=== PATIENT | male | born 1955 | race Caucasian/White ===

== ENCOUNTER 2020-11-01 09:29 | Day surgery (SDC) | payer MEDICARE ==
[2020-10-29 11:20] VITALS: BMI 28.7
[~2020-11-01 09:29] MED LIST: ALPRAZolam 0.25 MG TAB PO PRN; ALPRAZolam 0.5 MG TAB PO PRN; ASPIRIN 325 MG TAB PO ONE; ATORVASTATIN 80 MG TAB PO ONE; HEPARIN SODIUM,PORCINE 10,000 UNIT in SODIUM CHLORIDE 0.9% 1,000 ML IRRIGATION PRN; HEPARIN SODIUM,PORCINE 2,500 UNIT in SODIUM CHLORIDE 0.9% 250 ML IRRIGATION PRN; NITROGLYCERIN SL TABS 0.4 MG TAB SUBLINGUAL PRN; SODIUM CHLORIDE 0.9% 1,000 ML in EMPTY BAG 1 BAG IV ONE
[2020-11-01 09:58] VITALS: TEMP 97.9
[2020-11-01] MEDS: MIDAZOLAM 2 MG/2 ML VIAL IV ONE ×2 (11:07→11:13)
[2020-11-01] MEDS ORDERED: fentaNYL (PF) 50 MCG/ML 2 ML AMP IV ONE (11:07)
[2020-11-01] MEDS ORDERED: LIDOCAINE 1% INJ 10MG/ML (20 ML MDV) SQ ONE (11:11)
[2020-11-01] MEDS ORDERED: IOPAMIDOL-370 125ML BTL INJ ONE (11:23)
[2020-11-01] MEDS ORDERED: RX INFO: IV CONTRAST WAS GIVEN 1 EACH MISC MISCELLANE PRN (12:03)
[2020-11-01] MEDS ORDERED: SODIUM CHLORIDE 0.9% 1,000 ML IV SCH (12:15)
--- NOTE | 2020-11-01 12:17 | CC ---
CARDIAC CATHETERIZATION REPORT INDICATION: Intermittent episodes of dizziness and diaphoresis in a patient with abnormal stress test. PROCEDURE NOTE: After obtaining informed consent, left heart catheterization and coronary angiogram are performed via the right femoral artery using standard Gris catheters. The patient tolerated the procedure well without any obvious immediate complications. A femoral angiogram was performed and Angio-Seal will be deployed for hemostasis. Patient received moderate conscious sedation. Total sedation time was 19 minutes. FINDINGS: 1. HEMODYNAMICS: Left ventricular end-diastolic pressure is 14-16 mm. There is no significant gradient across the aortic valve. 2. LEFT VENTRICULOGRAM: Left ventriculogram is not performed. 3. ANGIOGRAPHIC DATA: Left Main Coronary Artery: Left main coronary artery is a normal-sized vessel and is free of stenosis. Divides into left anterior descending coronary artery and circumflex coronary artery. LAD and its branches, circumflex coronary artery and its branches are free of significant stenosis. Right coronary artery is a large dominant vessel and is free of significant disease. CONCLUSIONS: 1. Normal coronary arteries. 2. Normal left ventricular end-diastolic pressure. PLAN: Patient symptoms are noncardiac in origin. The stress test is a false positive stress test. Thank you for giving me the privilege to participate in the care of this pleasant gentleman. MMODL / IJN: [id number] /
[2020-11-01 17:30] VITALS: BP 147/80; PULSE 64; RESP 13
== END 2020-11-01 16:55 | disposition home or self-care (01) ==
LOC: CATHCVL 09:29
PROVIDERS: ATTEND Internal Medicine Cardiovascular Disease
DX: R42 Dizziness and giddiness (principal); R94.39 Abnormal result of other cardiovascular function study; I10 Essential (primary) hypertension; Z82.49 Family history of ischemic heart disease and other diseases of the circulatory system; Z79.899 Other long term (current) drug therapy
CPT/HCPCS: 93458; C1769 ×2; C1760; C1894; J2250; J2001; J3010; Q9967

== ENCOUNTER → 2020-11-29 | Outpatient (CLI) | payer MEDICARE ==
--- NOTE | 2020-11-29 11:27 | XR ---
EXAMINATION TYPE: XR chest 2V DATE OF EXAM: 11/29/2020 COMPARISON: NONE HISTORY: Shortness of breath TECHNIQUE: Frontal and lateral views of the chest are obtained. FINDINGS: Scattered senescent parenchymal changes noted. Hyperinflation compatible with COPD. No evidence for infiltrate. No evidence for atelectasis. Heart size is stable. Mediastinal structures are stable and grossly unremarkable. No evidence for hilar prominence. Degenerative changes dorsal spine. IMPRESSION: 1. No evidence for acute pulmonary disease.
== END | disposition home or self-care (01) ==
LOC: RADXRMAIN 10:54
PROVIDERS: ATTEND Family Medicine
DX: R06.02 Shortness of breath (principal)
CPT/HCPCS: 71046

== ENCOUNTER → 2021-06-14 | Outpatient (CLI) | payer MEDICARE ==
[2021-06-14 08:42] LABS: African American GFR (CKD) >90 (>60 ml/min/1.73 sqM); Blood Urea Nitrogen 20 mg/dL (9-20); Non-African American GFR(CKD) 83 (>60 ml/min/1.73 sqM)
--- NOTE | 2021-06-14 10:16 | CT ---
EXAMINATION TYPE: CT pelvis w con DATE OF EXAM: 06/14/2021 COMPARISON: None HISTORY: 66-year-old male C6 1, new prostate cancer TECHNIQUE: Contiguous axial scanning of the pelvis following administration of 100 ml Isovue 300 IV c ontrast. Delayed images through the bladder and coronal/sagittal reconstructions performed. CT DLP: 851.6 mGycm Automated exposure control for dose reduction was used. FINDINGS: Moderate circumferential bladder wall thickening. The prostate gland is enlarged at 5.4 x 5.3 cm with heterogeneous enhancement. No retroperitoneal or pelvic lymphadenopathy seen. A number of cysts within the liver measuring up to 1.7 cm partially visualized. Portal venous system is patent. Gallbladder, visualized portion of the adrenal glands, spleen, and pancreas show no gross abnormality . Renal cysts measuring up to 2.3 cm on the right and 8 mm on the left. No dilated small bowel, free fluid, or free air. Oral contrast progressed into the descending colon. Moderate stool burden. Sigmoid diverticulosis. Re dundant sigmoid colon. No pericolic inflammatory change. Bones: Mild degenerative change at the hips. Degenerative bony ankylosis of the SI joints. Bilateral L5 pars defects with grade 1 anterolisthesis L5-S1. Moderate degenerative disc disease here . Degenerative grade 1 retrolisthesis L4-L5. Small superior endplate Schmorl's node L4-L5. No osseous destructive process. Punctate densities right proximal femur and anterior left femoral hea d neck junction likely tiny bone islands. IMPRESSION: 1. PROSTATOMEGALY AT 5.4 CM WITH HETEROGENEOUS ENHANCEMENT LIKELY REFLECTING PATIENT'S UNDERLYING PRO STATE CANCER. 2. NO PELVIC OR RETROPERITONEAL LYMPHADENOPATHY TO SUGGEST METASTATIC DISEASE. 3. CIRCUMFERENTIAL BLADDER WALL THICKENING COULD REFLECT CHRONIC BLADDER WALL HYPERTROPHY OR CYSTITIS . 4. SIGMOID DIVERTICULOSIS. 5. BILATERAL L5 PARS DEFECTS WITH GRADE 1 ANTEROLISTHESIS AT L5-S1. DEGENERATIVE GRADE 1 RETROLISTHES IS L4-L5.
--- NOTE | 2021-06-14 12:13 | NM ---
EXAMINATION TYPE: NM bone scan whole body DATE OF EXAM: 06/14/2021 COMPARISON: NONE HISTORY: Prostate cancer. Delayed whole-body scanning was performed following the injection of 22.4 mCi Tc 99m MDP. Images acq uired 3 hours post injection. Whole body images in anterior and posterior projection along with addit ional spot views of the thorax abdomen and bilateral knees. FINDINGS: No suspicious increased radiotracer uptake to suggest metastatic disease to the bone. Increased uptake bilateral knee joints likely reflect product of degenerative change worse on the lef t side versus right side. Similar finding noted in the bilateral first toes likely reflecting bunion- type deformity and associated degenerative changes. Correlate clinically. IMPRESSION:
== END | disposition home or self-care (01) ==
LOC: RADNMMAIN 07:40
PROVIDERS: ATTEND Urology
DX: C61 Malignant neoplasm of prostate (principal); K57.30 Diverticulosis of large intestine without perforation or abscess without bleeding; M51.37 Other intervertebral disc degeneration, lumbosacral region
CPT/HCPCS: 82565; 84520; 72193; 36415; 78306; A9503; Q9967

== ENCOUNTER → 2022-07-07 | Outpatient (CLI) | payer MEDICARE ==
[2022-07-07 14:29] LABS: Basophils # (A) 0.04 X 10*3/uL (0.00-0.10); Basophils % (A) 0.7 %; Eosinophils # (A) 0.26 X 10*3/uL (0.04-0.35); Eosinophils % (A) 4.5 %; HCT 47.3 % (39.6-50.0); HGB 15.2 g/dL (13.0-17.0); Immature Grans, Automated 0.2 %; Lymphocytes # (A) 1.55 X 10*3/uL (0.90-5.00); Lymphocytes % (A) 26.6 %; MCH 30.3 pg (27.0-32.0); MCHC 32.1 g/dL (32.0-37.0); MCV 94.4 fL (80.0-97.0); Mean Platelet Volume 8.7 fL (9.5-12.2); Monocytes # (A) 0.77 X 10*3/uL (0.20-1.00); Monocytes % (A) 13.2 %; NRBC Per 100 WBC 0 /100 WBCS (0.0-0.0); Neutrophils % (A) 54.8 %; Platelet Count 149 X 10*3/uL (140-440); RBC 5.01 X 10*6/uL (4.40-5.60); RDW 13.2 % (11.5-14.5); WBC 5.83 X 10*3/uL (4.50-10.00)
[2022-07-07 14:40] LABS: African American GFR (CKD) 89.9 (60.0-200.0); Anion Gap 8.8 mmol/L (10.00-18.00); BUN/Creat Ratio 17.1 Ratio (12.00-20.00); Blood Urea Nitrogen 17.1 mg/dL (9.0-27.0); Calcium 9.2 mg/dL (8.7-10.3); Carbon Dioxide 26.2 mmol/L (20.0-27.5); Non-African American GFR(CKD) 77.5 (60.0-200.0); Potassium 4.4 mmol/L (3.5-5.5)
== END | disposition home or self-care (01) ==
LOC: LABPAT 09:31
PROVIDERS: ATTEND Urology
DX: Z01.818 Encounter for other preprocedural examination (principal); C61 Malignant neoplasm of prostate; I44.7 Left bundle-branch block, unspecified; I44.4 Left anterior fascicular block; R94.31 Abnormal electrocardiogram [ECG] [EKG]; R53.83 Other fatigue
CPT/HCPCS: 36415; 80048; 85025; 93005

== ENCOUNTER 2022-07-17 07:11 | Day surgery (SDC) | payer MEDICARE ==
[2022-07-09 14:25] VITALS: BMI 28.7
--- NOTE | 2022-07-16 19:11 | P.GSHP ---
History of Present Illness H&P Date: 07/16/22 Chief Complaint: Prostate cancer The patient is a 67-year-old white male initially evaluated in July 2020 for an elevated PSA level of 30.4. His father had prostate cancer. BUDDY revealed the prostate to be mildly enlarged with slight left-sided irregularity. He underwent a prostate ultrasound with biopsies, revealing a prostate volume of 55 mL. Only 1 of 12 biopsies was positive, a small focus of Alejandra 6 adenocarcinoma at the right apex. He subsequently underwent a CT scan, bone scan, and MRI of the prostate, and PSMA PET/CT scan, all unremarkable. His PSA level steven to 46.7 in January 2022. In April 2022, he underwent a repeat prostate ultrasound with biopsies. The prostate volume was 60 mL. Biopsies showed small foci of [place] 6 adenocarcinoma at the right lateral base and left lateral mid gland. Another focus of Alejandra 6 adenocarcinoma was found within the right transitional zone, and a focus of Alejandra 7 (3+4) adenocarcinoma measuring 5 mm in length was identified within the left transitional zone. He is aware of the concern of metastatic disease given how high his PSA level is, but studies have shown no evidence of metastases. Alternative treatment options were reviewed, primarily radiation therapy with ADT versus robotic-assisted lap aroscopic prostatectomy (RALP). He has elected to undergo an RALP. - Constitutional Constitutional: Reports chills, Reports fever - Genitourinary (Male) Genitourinary: Denies dysuria, Denies hematuria Past Medical History Past Medical History: GERD/Reflux, Hypertension Additional Past Medical History / Comment(s): dx prostate CA-2020-no radiation or chemo,irregular heartbeat History of Any Multi-Drug Resistant Organisms: None Reported Past Surgical History: Heart Catheterization, Orthopedic Surgery Additional Past Surgical History / Comment(s): prostate bx,yesica torn meniscus repairs Past Anesthesia/Blood Transfusion Reactions: Motion Sickness, Postoperative Nausea & Vomiting (PONV) Additional Past Anesthesia/Blood Transfusion Reaction / Comment(s): no hx blood transfusion, unk family hx Smoking Status: Never smoker - Past Family History Mother Family Medical History: Cancer Additional Family Medical History / Comment(s): breast Medications and Allergies Home Medications Medication Instructions Recorded Confirmed Type Dandelion Root 525 mg PO DAILY 07/09/22 07/09/22 History Allergies Allergy/AdvReac Type Severity Reaction Status Date / Time No Known Allergies Allergy Verified 07/09/22 14:17 Surgical - Exam - General well developed, well nourished, no distress - Neck no masses, trachea midline - Respiratory normal respiratory effort - Abdomen Abdomen: soft, non tender, no guarding, no rigid, no rebound - Genitourinary normal penis with no external lesions, testicles non-tender - Rectum Rectum: normal sphincter tone, no masses, other (Prostate moderately enlarged and smooth) - Psychiatric oriented to time, oriented to person, oriented to place, speech is normal, memory intact Assessment and Plan (1) Malignant neoplasm of prostate Status: Acute Code(s): C61 - MALIGNANT NEOPLASM OF PROSTATE SNOMED Code(s): 372048233 Plan: Robotic-assisted laparoscopic prostatectomy (RALP) with bilateral pelvic lymphadenectomy. The procedure has been reviewed in detail with the patient. He has been made aware of potential risks, which include anesthesia, bleeding, infection, bowel injury, neurovascular injury, lymphocele, urinary leak, and vesical neck contracture. Given that his cancer is primarily located within the transitional zones, the neurovascular bundles will be preserved. Despite this, he is aware of the risk of erectile dysfunction. He is also aware that he will likely experience post-prostatectomy urinary incontinence which may fail to resolve. Lastly, he is aware of the possible need for adjuvant therapy.
[~2022-07-17 07:11] MED LIST changes: -ALPRAZolam 0.25 MG TAB PO PRN; -ALPRAZolam 0.5 MG TAB PO PRN; -ASPIRIN 325 MG TAB PO ONE; -ATORVASTATIN 80 MG TAB PO ONE; +DEXAMETHASONE SOD PHOSPHATE 4 MG/ML 1 ML VIAL IV ONE; -HEPARIN SODIUM,PORCINE 10,000 UNIT in SODIUM CHLORIDE 0.9% 1,000 ML IRRIGATION PRN; -HEPARIN SODIUM,PORCINE 2,500 UNIT in SODIUM CHLORIDE 0.9% 250 ML IRRIGATION PRN; +HEPARIN SODIUM,PORCINE/PF 5,000 UNIT/0.5 ML SYRINGE SQ PRN; +HYDROmorphone 0.5 MG/0.5 ML SYRINGE IVP PRN; -NITROGLYCERIN SL TABS 0.4 MG TAB SUBLINGUAL PRN; -SODIUM CHLORIDE 0.9% 1,000 ML in EMPTY BAG 1 BAG IV ONE
[2022-07-17] MEDS ORDERED: ONDANSETRON 4 MG/2 ML VIAL ONE ×2 (07:42→09:54)
[2022-07-17] MEDS: LIDOCAINE 1% (10MG/ML) FOR IV START INTRADERMA PRN ×2 (07:55→08:00)
[2022-07-17] MEDS: LACTATED RINGERS 1,000 ML IV SCH ×2 (07:55→08:00)
[2022-07-17] MEDS ORDERED: MIDAZOLAM 2 MG/2 ML VIAL IV ONE (08:21)
[2022-07-17] MEDS ORDERED: HYDROmorphone (PF) 1 MG/ML ONE (09:54)
[2022-07-17] MEDS ORDERED: MIDAZOLAM 2 MG/2 ML VIAL ONE (09:54)
[2022-07-17] MEDS ORDERED: PHENYLEPHRINE-0.9% NACL SYG 1,000 MCG/10 ML SYRINGE ONE (09:54)
[2022-07-17] MEDS ORDERED: GLYCOPYRROLATE 0.2 MG/ML 2 ML VIAL ONE (09:54)
[2022-07-17] MEDS ORDERED: ROPIVACAINE 5 MG/ML 30 ML VIAL ONE (09:54)
[2022-07-17] MEDS ORDERED: PROPOFOL 10 MG/ML 20 ML VIAL IV ONE (09:54)
[2022-07-17] MEDS ORDERED: ROCURONIUM 10 MG/ML (5 ML VIAL) IV ONE (09:54)
[2022-07-17] MEDS ORDERED: NEOSTIGMINE 1 MG/ML 10 ML VIAL ONE (09:54)
[2022-07-17] MEDS ORDERED: SODIUM CHLORIDE 0.9% (PF) 10 ML VIAL ONE (09:54)
[2022-07-17] MEDS ORDERED: fentaNYL (PF) 50 MCG/ML 2 ML AMP ONE (09:54)
[2022-07-17] MEDS ORDERED: SUCCINYLCHOLINE CHLORIDE 200 MG/10 ML VIAL IV ONE (09:54)
[2022-07-17] MEDS ORDERED: LIDOCAINE 2% INJ 20 MG/ML (2 ML VIAL) ONE (09:54)
--- NOTE | 2022-07-17 10:22 | P.ANPRN ---
Procedure Note - Anesthesia - Nerve Block Performed Bilateral Erector Spinae Time Out Performed: Yes (:) Date of Procedure: 07/17/22 Procedure Start Time: Procedure Stop Time: Location of Patient: PreOp Indication: Acute Post-Operative Pain, Requested by Surgeon (Dr Dang) Sedation Type: Sedate with meaningful contact maintained Preparation: Sterile Prep Position: Prone Catheter: None Needle Types: Pajunk Needle Gauge: 21 Ultrasound used to visualize needle placement: Yes Ultrasound used to observe medication spread: Yes Injectate: 0.5% Ropivacaine (see comment for volume) (15cc +10cc PF Normal saline each side) Blood Aspirated: No Pain Paresthesia on Injection Noted: No Resistance on Injection: Normal Image Stored and Saved: Yes Events: Uneventful and Well Tolerated
[2022-07-17] MEDS ORDERED: BUPIVACAINE (PF) 0.25% 30 ML VIAL SQ ONE ×3 (10:28)
[2022-07-17] MEDS ORDERED: LACTATED RINGERS 1,000 ML IV ONE ×2 (13:29)
[2022-07-17] MEDS ORDERED: HYDROmorphone 1 MG/ML 1 ML SYRINGE IVP PRN (14:12)
[2022-07-17] MEDS ORDERED: ONDANSETRON 4 MG/2 ML VIAL IVP PRN (14:12)
--- NOTE | 2022-07-17 14:12 | P.OP ---
Date of Procedure: 07/17/22 Preoperative Diagnosis: Adenocarcinoma of the prostate Postoperative Diagnosis: Same Procedure(s) Performed: Robotic-assisted laparoscopic prostatectomy (RALP) with bilateral pelvic lymphadenectomy Anesthesia: STEF Surgeon: Elijah Dang Extension Associate #1: Sukhi Ren Estimated Blood Loss (ml): 75 IV fluids (ml): 1,800 Pathology: other (Prostate, seminal vesicles, bilateral pelvic lymph nodes) Condition: stable Disposition: PACU Indications for Procedure: The patient is a 67-year-old white male initially evaluated in July 2020 for an elevated PSA level of 30.4. His father had prostate cancer. BUDDY revealed the prostate to be mildly enlarged with slight left-sided irregularity. He underwent a prostate ultrasound with biopsies, revealing a prostate volume of 55 mL. Only 1 of 12 biopsies was positive, a small focus of Alejandra 6 adenocarcinoma at the right apex. He subsequently underwent a CT scan, bone scan, and MRI of the prostate, and PSMA PET/CT scan, all unremarkable. His PSA level steven to 46.7 in January 2022. In April 2022, he underwent a repeat prostate ultrasound with biopsies. The prostate volume was 60 mL. Biopsies showed small foci of [place] 6 adenocarcinoma at the right lateral base and left lateral mid gland. Another focus of Alejandra 6 adenocarcinoma was found within the right transitional zone, and a focus of Heath 7 (3+4) adenocarcinoma measuring 5 mm in length was identified within the left transitional zone. He is aware of the concern of metastatic disease given how high his PSA level is, but studies have shown no evidence of metastases. Alternative treatment options were reviewed, primarily radiation therapy with ADT versus robotic-assisted laparoscopic prostatectomy (RALP). He has elected to undergo an RALP. Operative Findings: No evidence of extraprostatic disease. Description of Procedure: The patient was taken in the operating room and placed in the supine position. He was carefully positioned on a beanbag for stability. The abdomen and external genitalia were prepped and draped sterilely. A Arciniega catheter was inserted. The Veress needle was passed through the anterior abdominal wall immediately cephalad to the umbilicus, and insufflation was performed to a pressure of 20 mm Hg. Once insufflation was performed, the Veress needle was removed and a supraumbilical incision was made, through which an 8 mm camera port was placed. Under camera guidance, 3 8 mm robotic ports were placed, 2 on the left and one on the right. A 12 mm port was placed on the right lateral side for use as an funeral home assistant port. A 5 mm port was placed to the right of the camera port for suction. The patient was placed in Trendelenburg position, and docking was then performed to the da Jazmin system utilizing a 4-arm approach. The abdomen was examined. The sigmoid colon was mobilized out of the pelvis. The peritoneum was incised lateral to the medial umbilical ligaments bilaterally, exposing the pubis. The peritoneum was then incised across the midline, allowing the bladder flap to be taken down. The endopelvic fascia was opened bilaterally, and muscular attachments from the urogenital diaphragm were swept away from the prostate. Bilateral pelvic lymphadenectomies were performed in the standard fashion, utilizing an extended template given the degree of PSA elevation. The peritoneal incisions were extended in a cephalad direction, and the vas deferens were divided bilaterally. Margins of dissection were the bifurcation of the iliac vessels proximally, the circumflex iliac vein distally, the genitofemoral nerve laterally, and the obturator nerve medially. A combination of sharp and blunt dissection was used. Care was taken to avoid any neurovascular injury, and the use of monopolar electrocautery was avoided immediately adjacent to neurovascular structures. The lymphatic package was clipped distally. No enlarged lymph nodes were encountered. There were no complications. The vesical neck was incised transversely, down to the lumen. The Arciniega catheter was brought out through the anterior vesical neck incision and was used for traction. The posterior aspect of the vesical neck was incised, such that the full-thickness of the vesical neck was divided. The anterior layer of the Denonvilliers fascia was incised, exposing the vas deferens. Each were isolated and divided. Next, each of the seminal vesicles were dissected away from adjacent tissues, and vascular attachments were cauterized and divided. The posterior leaf of Denonvilliers fascia was incised transversely, allowing entry into the plane between the prostate and rectum. With lateral spreading, this plane was developed down to the apex. This exposed the lateral vascular pedicles bilaterally. These were clipped and divided in an antegrade fashion, down to the apex. The use of electrocautery was avoided to prevent thermal damage to the nerves. The neurovascular bundles were preserved bilaterally. The remaining apical attachments were swept away from the prostate. The dorsal venous complex was incised, as well as periurethral tissue. At this point, only the urethra remained intact. This was transected immediately distal to the prostatic apex using cold scissors. The specimen was placed within a specimen bag. The dorsal venous complex was sutured using a V-Loc suture in a running fashion. The suture was passed through the periosteum of the pubis periurethral support. A second V-Loc suture was then used to place the Trent stitch, incorporating the rhabdosphincter and the edge of Denonvilliers fascia. This allowed the bladder to be taken down to the urethra, leaving the vesical neck immediately adjacent to the urethra. The vesicourethral anastomosis was then performed using a V-Loc suture in a running fashion. After completing the anastomosis, an 18-Armenian Arciniega catheter was placed and approximately 150 mL of 0.9 normal saline were instilled into the bladder. No extravasation of irrigant from the vesicourethral anastomosis was noted. A small amount of oozing was noted from the right vascular pedicle, so Surgicel was placed over the vascular pedicles bilaterally. Tisseel was sprayed into the pelvis over the vascular pedicles, dorsal vein, and vesicourethral anastomosis. The patient was returned to the supine position. Undocking was performed, and the specimen bag sutures were passed through the camera port. After removing all the ports and allowing all of the CO2 to be released from the peritoneal cavity, the camera port incision was enlarged to allow removal of the surgical specimen. The fascia of this incision was then closed using 0 PDS suture in a running fashion. Each of the skin incisions were then closed using 4-0 Monocryl suture in a subcuticular fashion. Marcaine was injected at each of the incision sites. Dermabond was applied to each incision. The Arciniega catheter was connected to gravity drainage. All sponge and needle counts were correct. The patient tolerated the procedure well was taken to the recovery room in stable condition.
[2022-07-17] MEDS: DEXTROSE 5%-0.45% NACL 1,000 ML IV SCH (16:03)
[2022-07-17] MEDS: KETOROLAC 15 MG/ML 1 ML VIAL IVP PRN (16:11)
[2022-07-17] MEDS: HEPARIN SODIUM,PORCINE/PF 5,000 UNIT/0.5 ML SYRINGE SQ SCH (22:44)
[2022-07-17] MEDS: lisinopriL 20 MG TAB PO SCH (22:44)
[2022-07-18] MEDS: DEXTROSE 5%-0.45% NACL 1,000 ML IV SCH ×3 (01:20→16:34)
[2022-07-18] MEDS: KETOROLAC 15 MG/ML 1 ML VIAL IVP PRN ×4 (01:20→23:06)
[2022-07-18] MEDS: HEPARIN SODIUM,PORCINE/PF 5,000 UNIT/0.5 ML SYRINGE SQ SCH ×2 (10:38→21:46)
[2022-07-18] MEDS ORDERED: HYDROcodone/APAP 5-325MG 1 EACH TAB PO PRN (13:34)
--- NOTE | 2022-07-18 13:39 | P.PN ---
Progress Note - Text POD #1 S/P RALPNo acute overnight event, having incisional pain. Denies any N/V. urine is light pink. Exam Abdomen: mild distention, soft, tenderness along incision Incision: CDI A/P S/P RALP -pain control -ambulate -potential discharge home today vs tomorrow
[2022-07-18] MEDS: lisinopriL 20 MG TAB PO SCH (21:46)
[2022-07-18] MEDS: ACETAMINOPHEN TAB 325 MG TAB PO PRN (21:54)
[2022-07-19] MEDS: DEXTROSE 5%-0.45% NACL 1,000 ML IV SCH ×2 (02:28→10:02)
[2022-07-19] MEDS: LACTATED RINGERS 1,000 ML IV SCH (05:39)
[2022-07-19] MEDS: ACETAMINOPHEN TAB 325 MG TAB PO PRN ×2 (05:44→10:00)
[2022-07-19 07:58] VITALS: BP 160/96; PULSE 82; RESP 18; TEMP 98
[2022-07-19] MEDS: HEPARIN SODIUM,PORCINE/PF 5,000 UNIT/0.5 ML SYRINGE SQ SCH (10:00)
--- NOTE | 2022-07-19 12:07 | P.DS ---
Providers Attending physician: Elijah Dang Primary care physician: [facility] [place] [facility] Course: This is 67-year-old male with history of prostate cancer. Underwent a robotic prostatectomy by Dr. Dang on July 17. Patient was admitted to the hospital postoperatively. Please see op note dated July 17 for surgery detail. He was having some incisional pain on postop day #1. The pain improved on postop day #2 and he was discharged home with the Arciniega catheter. At time of discharge he was tolerating a diet, ambulating and pain was controlled Plan - Discharge Summary Discharge Rx Participant: No New Discharge Prescriptions: No Action Enalapril [Vasotec] 10 mg PO HS Ubidecarenone [Co Q-10] 300 mg PO DAILY Dandelion Root 525 mg PO DAILY Discharge Medication List Dandelion Root 525 mg PO DAILY 07/09/22 [History] Enalapril [Vasotec] 10 mg PO HS 07/17/22 [History] Ubidecarenone [Co Q-10] 300 mg PO DAILY 07/17/22 [History] Follow up Appointment(s)/Referral(s): Elijah Dang MD [STAFF PHYSICIAN] - 07/28/22
[2022-07-19] MEDS: KETOROLAC 15 MG/ML 1 ML VIAL IVP PRN (13:37)
== END 2022-07-19 15:02 | disposition home or self-care (01) ==
LOC: OR 07:11 → 4SSUR 14:01 → OR 07-19 15:02
PROVIDERS: ATTEND Urology
DX: C61 Malignant neoplasm of prostate (principal); Z80.42 Family history of malignant neoplasm of prostate; I10 Essential (primary) hypertension; K21.9 Gastro-esophageal reflux disease without esophagitis; Z98.890 Other specified postprocedural states; Z80.3 Family history of malignant neoplasm of breast; Z79.811 Long term (current) use of aromatase inhibitors; Z86.79 Personal history of other diseases of the circulatory system
CPT/HCPCS: 55866; 38571; 64999; 76942; 94760; 64461; 86900; 86901; 88305; 86850; 88307; 88309; J2250; J0330; J1100; J2710; J0690 ×2; J2405; J3010; J1170; J2795; J1885 ×3; J2370; J2704; J1644 ×3; J2001

== ENCOUNTER 2022-07-20 19:12 | Emergency (ER) | payer MEDICARE ==
[2022-07-20 19:19] VITALS: BP 165/86; PULSE 101; RESP 18; TEMP 97.7
--- NOTE | 2022-07-20 20:28 | US ---
EXAMINATION TYPE: US scrotum with doppler. Grayscale and color Doppler Duplex imaging performed of t he scrotum. DATE OF EXAM: 07/20/2022 COMPARISON: NONE CLINICAL HISTORY: swelling s/p prostatectomy. EXAM MEASUREMENTS: TESTICLES: Right Testicle: 4.8 x 3.4 x 2.7 cm Left Testicle: 4.6 x 3.5 x 3.3 cm EPIDIDYMIS HEAD: Right Epididymis: 0.87 cm Hypoechoic, possibly cystic well circumscribed mass in head of epididymis . 0.6 x 0.6 x 0.5cm Left Epididymis: 0.57 cm Doppler performed to assess for testicular vascularity; good bilateral color flow and waveforms are s een. There is no evidence of testicular torsion. Presence of hydroceles: No Presence of varicoceles: No * Significant tissue edema bilateral scrotal wall. IMPRESSION: There is bilateral scrotal edema. No testicular torsion or mass. Right-sided epididymal cyst.
[2022-07-20 20:33] LABS: Basophils % (A) 0 %; Eosinophils # (A) 0.2 k/uL (0-0.7); Eosinophils % (A) 2 %; HCT 45.7 % (39.0-53.0); HGB 15.5 gm/dL (13.0-17.5); Lymphocytes # (A) 1.1 k/uL (1.0-4.8); Lymphocytes % (A) 15 %; MCH 31.1 pg (25.0-35.0); MCHC 33.9 g/dL (31.0-37.0); MCV 91.8 fL (80.0-100.0); Mean Platelet Volume 6.9; Monocytes # (A) 0.4 k/uL (0-1.0); Monocytes % (A) 6 %; Neutrophils # (A) 5.3 k/uL (1.3-7.7); Neutrophils % (A) 75 %; Platelet Count 172 k/uL (150-450); RBC 4.98 m/uL (4.30-5.90); RDW 12.7 % (11.5-15.5)
[2022-07-20 20:38] LABS: Albumin 3.7 g/dL (3.5-5.0); Calcium 8.8 mg/dL (8.4-10.2); Total Bilirubin 0.8 mg/dL (0.2-1.3); Total Protein 6.2 g/dL (6.3-8.2)
[2022-07-20 20:51] LABS: Appearance,Urine Clear (Clear); Bacteria,Urine Rare /hpf; Bilirubin,Urine Negative (Negative); Blood,Urine Large (Negative); Color,Urine Yellow; Glucose,Urine (UA) Negative (Negative); Hyaline Casts,Urine 3 /lpf (0-2); Ketones,Urine Trace (Negative); Leukocyte Esterase,Urine Moderate (Negative); Mucus,Urine Many /hpf; Nitrite,Urine Negative (Negative); PH, Urine 5.5 (5.0-8.0); Protein,Urine 1+ (Negative); RBC,Urine >182 /hpf (0-5); Specific Gravity,Urine 1.025 (1.001-1.035); Squamous Epithelial Cell,Urine 1 /hpf (0-4); Urobilinogen,Urine <2.0 mg/dL (<2.0); WBC,Urine 1 /hpf (0-5)
[2022-07-20 20:59] LABS: Potassium 4.2 mmol/L (3.5-5.1)
--- NOTE | 2022-07-20 21:07 | ED ---
Male Urogenital HPI - General Chief complaint: Urogenital Stated complaint: Post op issues Time Seen by Provider: 07/20/22 19:22 Source: patient Mode of arrival: ambulatory - History of Present Illness Initial comments: Patient is a 67-year-old male who presents to the emergency department for postop issues. Patient had prostatectomy [address] Dang. Patient feels well, states pain has been improving. Today he noticed testicular swelling whic brought him to the emergency department. No injury. He denies testicular pain, burning with urination, penile discharge. Denies fever, chills, abdominal pain nausea, vomiting, - Related Data Home Medications Medication Instructions Recorded Confirmed Dandelion Root 525 mg PO DAILY 07/09/22 07/09/22 Enalapril [Vasotec] 10 mg PO HS 07/17/22 07/17/22 Ubidecarenone [Co Q-10] 300 mg PO DAILY 07/17/22 07/17/22 Previous Rx's Medication Instructions Recorded Ciprofloxacin HCl [Cipro] 500 mg PO Q12HR 3 Days #6 tab 07/19/22 HYDROcodone/APAP 5-325MG [[place] 1 tab PO Q6HR PRN 3 Days #6 tab 07/19/22 5-325] Ketorolac [Toradol] 10 mg PO Q6HR PRN #15 tab 07/19/22 Allergies Allergy/AdvReac Type Severity Reaction Status Date / Time No Known Allergies Allergy Verified 07/20/22 19:19 Review of Systems ROS Statement: Those systems with pertinent positive or pertinent negative responses have been documented in the HPI. ROS Other: All systems not noted in ROS Statement are negative. Past Medical History Past Medical History: No Reported History, Hypertension History of Any Multi-Drug Resistant Organisms: None Reported Additional Past Surgical History / Comment(s): prostate Past Anesthesia/Blood Transfusion Reactions: No Reported Reaction, Motion Sickness, Postoperative Nausea & Vomiting (PONV) Past Psychological History: No Psychological Hx Reported Smoking Status: Never smoker Past Alcohol Use History: None Reported, Occasional General Exam General appearance: alert, in no apparent distress Head exam: Present: atraumatic, normocephalic, normal inspection Respiratory exam: Present: normal lung sounds bilaterally. Absent: respiratory distress, wheezes, rales, rhonchi, stridor Cardiovascular Exam: Present: regular rate, normal rhythm, normal heart sounds. Absent: systolic murmur, diastolic murmur, rubs, gallop, clicks GI/Abdominal exam: Present: soft, normal bowel sounds, other (Surgical wounds healing nicely). Absent: distended, tenderness, guarding, rebound, rigid exam: Present: scrotal swelling (Generalized, no tenderness, erythema, warmth) Neurological exam: Present: alert, oriented X3, CN II-XII intact Psychiatric exam: Present: normal affect, normal mood Skin exam: Present: warm, dry, intact, normal color. Absent: rash Course Vital Signs 07/20/22 19:15 Temperature 97.7 F Pulse Rate 101 H Respiratory 18 Rate Blood Pressure 165/86 O2 Sat by Pulse 98 Oximetry Medical Decision Making - Medical Decision Making Was pt. sent in by a medical professional or institution (RITO Calix, CUP MACHINE OPERATOR, urgent care, hospital, or care home...) When possible be specific @ -[No] Did you speak to anyone other than the patient for history (EMS, parent, family, police, friend...)? What history was obtained from this source @ -[No] Did you review nursing and triage notes (agree or disagree)? Why? @ -[I reviewed and agree with nursing and triage notes] Were old charts reviewed (outside hosp., previous admission, EMS record, old EKG, old radiological studies, urgent care reports/EKG's, care home records)? Report findings @ -[No old charts were reviewed] Differential Diagnosis (chest pain, altered mental status, abdominal pain women, abdominal pain men, vaginal bleeding, weakness, fever, dyspnea, syncope, headache, dizziness, GI bleed, back pain, seizure, CVA, palpatations, mental health)? @ -post-op complication, epididymitis, orchitis EKG interpreted by me (3pts min.). @ -[As above] X-rays interpreted by me (1pt min.). @ -[None done] CT interpreted by me (1pt min.). @ -[None done] U/S interpreted by me (1pt. min.). @ -[None done] What testing was considered but not performed or refused? (CT, X-rays, U/S, labs)? Why? @ -[None] What meds were considered but not given or refused? Why? @ -[None] Did you discuss the management of the patient with other professionals (professionals i.e. , PA, CUP MACHINE OPERATOR, lab, RT, psych nurse, renal social worker, er tech, teacher, air defense artillery officer, case finisher)? Give summary @ -Yes, Dr. Mittal. Recommend elevation of the testicles and follow-up in the office. Was smoking cessation discussed for >3mins.? @ -[No] Was critical care preformed (if so, how long)? @ -[No] Were there social determinants of health that impacted care today? How? (Homelessness, low income, unemployed, alcoholism, drug addiction, transportation, low edu. Level, literacy, decrease access to med. care, detention, rehab)? @ -[No] Was there de-escalation of care discussed even if they declined (Discuss DNR or withdrawal of care, Hospice)? DNR status @ -[No] What co-morbidities impacted this encounter? (DM, HTN, Smoking, COPD, CAD, Cancer, CVA, ARF, Chemo, Hep., AIDS, mental health diagnosis, sleep apnea, morbid obesity)? @ -[None] Was patient admitted / discharged? Hospital course, mention meds given and route, prescriptions, significant lab abnormalities, going to OR and other pertinent info. @ -This is a 67-year-old male presenting with testicular swelling after prostatectomy 4 days ago. Patient well-appearing, no testicular pain. Unremarkable labs, unremarkable scrotal ultrasound. Case discussed with Dr. Mittal who recommends elevation of the testicles and follow-up in the office. Patient verbalizes understanding and will be discharged. Undiagnosed new problem with uncertain prognosis? @ -[No] Drug Therapy requiring intensive monitoring for toxicity (Heparin, Nitro, Insulin, Cardizem)? @ -[No] Were any procedures done? @ -[No] Diagnosis/symptom? @Testicular swelling Acute, or Chronic, or Acute on Chronic? @ -Acute Uncomplicated (without systemic symptoms) or Complicated (systemic symptoms)? @ -Uncomplicated Side effects of treatment? @ -[No] Exacerbation, Progression, or Severe Exacerbation? @ -[No] Poses a threat to life or bodily function? How? (Chest pain, [place], [place], pneumonia, PE, COPD, DKA, ARF, appy, cholecystitis, CVA, Diverticulitis, Homicidal, Suicidal, threat to staff... and all critical care pts) @ -[No] Dr. Myles is my attending. - Lab Data Result diagrams: 07/20/22 19:48 07/20/22 19:48 Lab Results 07/20/22 07/20/22 07/20/22 Range/Units 19:48 19:48 19:48 WBC 7.0 (3.8-10.6) k/uL RBC 4.98 (4.30-5.90) m/uL Hgb 15.5 (13.0-17.5) gm/dL Hct 45.7 (39.0-53.0) % MCV 91.8 (80.0-100.0) fL MCH 31.1 (25.0-35.0) pg MCHC 33.9 (31.0-37.0) g/dL RDW 12.7 (11.5-15.5) % Plt Count 172 (150-450) k/uL MPV 6.9 Neutrophils % 75 % Lymphocytes % 15 % Monocytes % 6 % Eosinophils % 2 % Basophils % 0 % Neutrophils # 5.3 (1.3-7.7) k/uL Lymphocytes # 1.1 (1.0-4.8) k/uL Monocytes # 0.4 (0-1.0) k/uL Eosinophils # 0.2 (0-0.7) k/uL Basophils # 0.0 (0-0.2) k/uL Sodium 138 (137-145) mmol/L Potassium 4.2 (3.5-5.1) mmol/L Chloride 106 (98-107) mmol/L Carbon Dioxide 26 (22-30) mmol/L Anion Gap 6 mmol/L BUN 19 (9-20) mg/dL Creatinine 1.02 (0.66-1.25) mg/dL Est GFR (CKD-EPI)AfAm 88 (>60 ml/min/1.73 sqM) Est GFR (CKD-EPI)NonAf 76 (>60 ml/min/1.73 sqM) Glucose 116 H (74-99) mg/dL Plasma Lactic Acid [place] 1.1 (0.7-2.0) mmol/L Calcium 8.8 (8.4-10.2) mg/dL Total Bilirubin 0.8 (0.2-1.3) mg/dL AST 65 H (17-59) U/L ALT 53 H (4-49) U/L Alkaline Phosphatase 77 (38-126) U/L Total Protein 6.2 L (6.3-8.2) g/dL Albumin 3.7 (3.5-5.0) g/dL Urine Color Urine Appearance (Clear) Urine pH (5.0-8.0) Ur Specific [place] (1.001-1.035) Urine Protein (Negative) Urine Glucose (UA) (Negative) Urine Ketones (Negative) Urine Blood (Negative) Urine Nitrite (Negative) Urine Bilirubin (Negative) Urine Urobilinogen (<2.0) mg/dL Ur Leukocyte Esterase (Negative) Urine RBC (0-5) /hpf Urine WBC (0-5) /hpf Ur Squamous Epith Cells (0-4) /hpf Urine Bacteria (None) /hpf Hyaline Casts (0-2) /lpf Urine Mucus (None) /hpf 07/20/22 Range/Units 19:48 WBC (3.8-10.6) k/uL RBC (4.30-5.90) m/uL Hgb (13.0-17.5) gm/dL Hct (39.0-53.0) % MCV (80.0-100.0) fL MCH (25.0-35.0) pg MCHC (31.0-37.0) g/dL RDW (11.5-15.5) % Plt Count (150-450) k/uL MPV Neutrophils % % Lymphocytes % % Monocytes % % Eosinophils % % Basophils % % Neutrophils # (1.3-7.7) k/uL Lymphocytes # (1.0-4.8) k/uL Monocytes # (0-1.0) k/uL Eosinophils # (0-0.7) k/uL Basophils # (0-0.2) k/uL Sodium (137-145) mmol/L Potassium (3.5-5.1) mmol/L Chloride (98-107) mmol/L Carbon Dioxide (22-30) mmol/L Anion Gap mmol/L BUN (9-20) mg/dL Creatinine (0.66-1.25) mg/dL Est GFR (CKD-EPI)AfAm (>60 ml/min/1.73 sqM) Est GFR (CKD-EPI)NonAf (>60 ml/min/1.73 sqM) Glucose (74-99) mg/dL Plasma Lactic Acid [place] (0.7-2.0) mmol/L Calcium (8.4-10.2) mg/dL Total Bilirubin (0.2-1.3) mg/dL AST (17-59) U/L ALT (4-49) U/L Alkaline Phosphatase (38-126) U/L Total Protein (6.3-8.2) g/dL Albumin (3.5-5.0) g/dL Urine Color Yellow Urine Appearance Clear (Clear) Urine pH 5.5 (5.0-8.0) Ur Specific [place] 1.025 (1.001-1.035) Urine Protein 1+ H (Negative) Urine Glucose (UA) Negative (Negative) Urine Ketones Trace H (Negative) Urine Blood Large H (Negative) Urine Nitrite Negative (Negative) Urine Bilirubin Negative (Negative) Urine Urobilinogen <2.0 (<2.0) mg/dL Ur Leukocyte Esterase Moderate H (Negative) Urine RBC >182 H (0-5) /hpf Urine WBC 1 (0-5) /hpf Ur Squamous Epith Cells 1 (0-4) /hpf Urine Bacteria Rare H (None) /hpf Hyaline Casts 3 H (0-2) /lpf Urine Mucus Many H (None) /hpf Disposition Clinical Impression: Scrotum swelling, Post-operative complication Disposition: HOME SELF-CARE Condition: Good Instructions (If sedation given, give patient instructions): Testicle Pain (ED) Additional Instructions: Please elevate the scrotum as much as possible for the next few days. Follow up with Dr. Dang in 1-2 days. Return to the ER if you experience new, concerning, or worsening symptoms. Is patient prescribed a controlled substance at d/c from ED?: No Referrals: Ford Haq MD [Primary Care Provider] - 1-2 days Time of Disposition: 21:07
== END 2022-07-20 21:17 | disposition home or self-care (01) ==
LOC: EC 19:12
DX: T88.9XXA Complication of surgical and medical care, unspecified, initial encounter (principal); N50.89 Other specified disorders of the male genital organs
CPT/HCPCS: 36415; 76870; 80053; 81001; 83605; 85025; 93975; 99284

== ENCOUNTER 2022-08-01 12:55 | Emergency (ER) | payer MEDICARE ==
[2022-08-01 13:13] VITALS: TEMP 98.4
--- NOTE | 2022-08-01 14:01 | US ---
EXAMINATION TYPE: US venous doppler duplex LE RT DATE OF EXAM: 08/01/2022 1:56 PM COMPARISON: NONE CLINICAL HISTORY: pain. Right leg swelling s/p prostate surgery 2 weeks ago SIDE PERFORMED: Right TECHNIQUE: The lower extremity deep venous system is examined utilizing real time linear array sonog veronica with graded compression, doppler sonography and color-flow sonography. VESSELS IMAGED: Common Femoral Vein Deep Femoral Vein Greater Saphenous Vein * Femoral Vein Popliteal Vein Small Saphenous Vein * Proximal Calf Veins (* superficial vessels) Grayscale, color doppler, spectral doppler imaging performed of the deep veins of the lower extremiti es. There is normal flow, compressibility, vascular waveforms. Right Leg: Negative for DVT IMPRESSION: No ultrasound evidence for deep venous thrombosis of the right lower extremity.
--- NOTE | 2022-08-01 14:50 | ED ---
Extremity Problem HPI - General Chief complaint: Extremity Problem,Nontraumatic Stated complaint: leg pain & swelling Time Seen by Provider: 08/01/22 13:18 Source: patient Mode of arrival: ambulatory Limitations: no limitations - History of Present Illness Initial comments: Patient is a 67-year-old male who presents to the emergency department with a chief complaint of right leg pain. Patient states for the past few days he has woken up out of sleep due to pain in his right thigh which shoots down into his calf. He denies injury. Patient presents today due to concern for right calf swelling. Minimal pain currently. No pain medication. He denies history of DVT and PE. He does not use blood thinners. No recent airplane travel or long car rides. He does report prostatectomy a couple weeks ago. States he has been walking around inside his home since the surgery. Patient standing during initial evaluation. No chest pain or shortness of breath. - Related Data Home Medications Medication Instructions Recorded Confirmed Dandelion Root 525 mg PO DAILY 07/09/22 08/01/22 Previous Rx's Medication Instructions Recorded Cyclobenzaprine [Flexeril] 10 mg PO HS PRN #7 tab 08/01/22 Allergies Allergy/AdvReac Type Severity Reaction Status Date / Time No Known Allergies Allergy Verified 08/01/22 14:01 Review of Systems ROS Statement: Those systems with pertinent positive or pertinent negative responses have been documented in the HPI. ROS Other: All systems not noted in ROS Statement are negative. Past Medical History Past Medical History: No Reported History, Hypertension History of Any Multi-Drug Resistant Organisms: None Reported Additional Past Surgical History / Comment(s): prostate Past Anesthesia/Blood Transfusion Reactions: No Reported Reaction, Motion Sickness, Postoperative Nausea & Vomiting (PONV) Past Psychological History: No Psychological Hx Reported Smoking Status: Never smoker Past Alcohol Use History: None Reported, Occasional Past Drug Use History: None Reported General Exam Limitations: no limitations General appearance: alert, in no apparent distress Head exam: Present: atraumatic, normocephalic, normal inspection Respiratory exam: Present: normal lung sounds bilaterally. Absent: respiratory distress, wheezes, rales, rhonchi, stridor Cardiovascular Exam: Present: regular rate, normal rhythm, normal heart sounds. Absent: systolic murmur, diastolic murmur, rubs, gallop, clicks Right Upper Leg exam: Present: normal inspection, full ROM. Absent: tenderness, swelling Knee exam: Present: normal inspection, full ROM. Absent: tenderness, swelling Lower Leg exam: Present: normal inspection, full ROM, tenderness, Homans' sign. Absent: swelling, laceration, ecchymosis, deformity, crepitus, dislocation, erythema, palpable cord Ankle exam: Present: normal inspection, full ROM. Absent: tenderness, swelling Neurological exam: Present: alert, oriented X3, CN II-XII intact Psychiatric exam: Present: normal affect, normal mood Skin exam: Present: warm, dry, intact, normal color. Absent: rash Course Vital Signs 08/01/22 08/01/22 13:11 15:04 Temperature 98.4 F Pulse Rate 74 72 Respiratory 20 18 Rate Blood Pressure 162/92 158/98 O2 Sat by Pulse 100 98 Oximetry Medical Decision Making - Medical Decision Making Was pt. sent in by a medical professional or institution (, PA, AGRICULTURAL LENDER, urgent care, hospital, or intermediate...) When possible be specific @ -[No] Did you speak to anyone other than the patient for history (EMS, parent, family, police, friend...)? What history was obtained from this source @ -[No] Did you review nursing and triage notes (agree or disagree)? Why? @ -[I reviewed and agree with nursing and triage notes] Were old charts reviewed (outside hosp., previous admission, EMS record, old EKG, old radiological studies, urgent care reports/EKG's, intermediate records)? Report findings @ -[No old charts were reviewed] Differential Diagnosis (chest pain, altered mental status, abdominal pain women, abdominal pain men, vaginal bleeding, weakness, fever, dyspnea, syncope, headache, dizziness, GI bleed, back pain, seizure, CVA, palpatations, mental health)? @ -muscle strain, cellulitis, DVT EKG interpreted by me (3pts min.). @ -[As above] X-rays interpreted by me (1pt min.). @ -[None done] CT interpreted by me (1pt min.). @ -[None done] U/S interpreted by me (1pt. min.). @ -Ultrasound report shows no evidence of acute DVT in the RLE. What testing was considered but not performed or refused? (CT, X-rays, U/S, labs)? Why? @ -[None] What meds were considered but not given or refused? Why? @ -Considered pain medications but patient declined Did you discuss the management of the patient with other professionals (professionals i.e. , PA, AGRICULTURAL LENDER, lab, RT, psych nurse, social sciences research scientist, skin pass operator, teacher, president and chief operating officer, human services case manager)? Give summary @ -[No] Was smoking cessation discussed for >3mins.? @ -[No] Was critical care preformed (if so, how long)? @ -[No] Were there social determinants of health that impacted care today? How? (Homelessness, low income, unemployed, alcoholism, drug addiction, transportation, low edu. Level, literacy, decrease access to med. care, residential, rehab)? @ -[No] Was there de-escalation of care discussed even if they declined (Discuss DNR or withdrawal of care, Hospice)? DNR status @ -[No] What co-morbidities impacted this encounter? (DM, HTN, Smoking, COPD, CAD, Cancer, CVA, ARF, Chemo, Hep., AIDS, mental health diagnosis, sleep apnea, morbid obesity)? @ -[None] Was patient admitted / discharged? Hospital course, mention meds given and route, prescriptions, significant lab abnormalities, going to OR and other pertinent info. @ -This is a 67-year-old male presenting for right calf pain and swelling. Patient has pain with palpation of the right calf. There are no overlying skin changes, no noticeable swelling. Ultrasound negative for acute DVT. Patient will be discharged with instruction to follow up with his primary care provider. Undiagnosed new problem with uncertain prognosis? @ -[No] Drug Therapy requiring intensive monitoring for toxicity (Heparin, Nitro, Insulin, Cardizem)? @ -[No] Were any procedures done? @ -[No] Diagnosis/symptom? @ -right leg pain Acute, or Chronic, or Acute on Chronic? @ -acute Uncomplicated (without systemic symptoms) or Complicated (systemic symptoms)? @ -uncomplicated Side effects of treatment? @ -[No] Exacerbation, Progression, or Severe Exacerbation? @ -[No] Poses a threat to life or bodily function? How? (Chest pain, [place], [place], pneumonia, PE, COPD, DKA, ARF, appy, cholecystitis, CVA, Diverticulitis, Homicidal, Suicidal, threat to staff... and all critical care pts) @ -[No] Dr. Batista is my attending. Disposition Clinical Impression: Right leg pain Disposition: HOME SELF-CARE Condition: Good Instructions (If sedation given, give patient instructions): Leg Pain (ED) Additional Instructions: Take medication as directed. Follow-up with primary care provider in one to 2 days. Return to the emergency department if you experience new, concerning for worsening symptoms. Prescriptions: Cyclobenzaprine [Flexeril] 10 mg PO HS PRN #7 tab PRN Reason: Pain Is patient prescribed a controlled substance at d/c from ED?: No Referrals: Ford Haq MD [Primary Care Provider] - 1-2 days
[2022-08-01 15:05] VITALS: BP 158/98; PULSE 72; RESP 18
== END 2022-08-01 15:10 | disposition home or self-care (01) ==
LOC: EC 12:55
DX: M79.604 Pain in right leg (principal); I10 Essential (primary) hypertension
CPT/HCPCS: 99283